=== PATIENT | female | born 1970 | race African-American/Black ===

== ENCOUNTER 2016-11-09 15:46 | Emergency (ER) | payer BC ==
--- NOTE | ~2016-11-09 | CR72 ---
[facility]. [facility] A Service of [facility] & [facility] RADIOLOGY TEXT RESULTS PATIENT: LARA ROSADO LOCATION: SED : 70 UNIT #: [id number] AGE: [address]: Lauro Perez MD SEX: F ORDER DR: [id number] [address] [address] [id number] MR#: [id number] Acc #: [id number] NAME: LARA ROSADO : 1970 SEX: F STUDY DATE/TIME: 11/09/2016 16:18 UNIT: SED ROOM: STUDY DESCRIPTION: CR Chest Single View Portable Attending Physician: Lauro Perez M.D. Ordering Physician: Lauro Perez M.D. Primary Care Physician: No Primary Care Physician MEDICAL IMAGING REPORT This report is preliminary unless electronic signature is present. EXAM Single view of the chest, dated 11/09/16. COMPARISON None. HISTORY Weakness all day today. FINDINGS Single view of the chest was obtained. A single AP view of the chest shows both lungs to be clear. The heart is normal in size. The mediastinal contour is normal. No significant bone abnormalities are seen. IMPRESSION Normal AP chest. Dictated by... Julissa Bernal M.D. THIS IS AN ELECTRONICALLY VERIFIED REPORT Julissa Bernal M.D. at 11/11/2016 8:32 PM CPR/jt TD: 11/09/2016 19:34 JOB #: [id number] MEDICAL IMAGING REPORT Page 1 of 1
--- NOTE | ~2016-11-09 | EKG ---
PATIENT: LARA ROSADO UNIT #: [id number] Ventricular Rate: 76 BPM Atrial Rate: 76 BPM P-R Interval: 220 ms QRS Duration: 80 ms Q-T Interval: 390 ms QTC Calculation(Bezet): 438 ms P [place]: 48 degrees Calculated R [place]: -4 degrees Calculated T [place]: 35 degrees Diagnosis Line: Sinus rhythm with 1st degree A-V block Diagnosis Line: Otherwise normal ECG Diagnosis Line: No previous ECGs available Diagnosis Line: Confirmed by SHAVON DAWN MD ([id number]) on Diagnosis Line: 11/13/2016 8:30:22 AM INTERPRETING MD: NEREYDA VALENZUEAL
[~2016-11-09 15:46] MED LIST: DIAZEPAM PO; PROZAC PO; WELLBUTRIN PO
[2016-11-09] MEDS ORDERED: NORVASC PO (15:49)
[2016-11-09 16:53] LABS: BASOPHIL# 0.1 X10e3 (0-0.3); BASOPHIL% 1.1 % (0-2.5); EOSINOPHIL# 0.1 X10e3 (0-0.7); EOSINOPHIL% 0.7 % (0.0-7.0); HEMATOCRIT 37.4 % (35.0-45.0); HEMOGLOBIN 11.7 gm/dL (12.0-16.0); LYMPHOCYTE# 2.3 X10e3 (1.0-3.5); LYMPHOCYTE% 27.8 % (17.0-45.0); MEAN CORPUSCULAR HGB CONC 31.3 g/dL (30-36); MEAN PLATELET VOLUME 9.8 FL (6.5-11.5); MONOCYTE# 0.4 X10e3 (0-1.0); MONOCYTE% 4.8 % (3.0-12.0); NEUTROPHIL# 5.5 X10e3 (1.5-7.1); NEUTROPHIL% 65.6 % (40-75); PLATELET COUNT 203 X10e3 (140-420); RED BLOOD COUNT 4.68 X10e (3.90-5.30); RED CELL DISTRIBUTION WIDTH 14.9 % (11.0-15.5); WHITE BLOOD COUNT 8.3 X10e3 (4.0-10.5)
[2016-11-09 16:59] LABS: POC - CKMB 2.1 ng/mL (0.0-7.9); POC - TROPONIN <0.05 ng/mL (<=0.05)
[2016-11-09 17:00] LABS: DIFF IND NO
[2016-11-09 17:01] LABS: INR 1.1; PROTHROMBIN TIME (PATIENT) 12.6 SECONDS (9.5-12.4)
[2016-11-09 17:08] LABS: PARTIAL THROMBOPLASTIN TIME <20.0 SECONDS (25.6-38.1)
[2016-11-09 17:09] LABS: ALBUMIN SERUM 4.1 g/dL (3.5-5.0); BILIRUBIN, DIRECT 0.1 mg/dL (0.0-0.2); BILIRUBIN,INDIRECT 0.8 mg/dL (0.0-0.9); BILIRUBIN,TOTAL 0.9 mg/dL (0.2-2.0); CALCIUM SERUM 8.8 mg/dL (8.4-10.2); CREATININE SERUM 0.5 mg/dL (0.6-1.4); GLOM FILT RATE Estimated 134.5 mL/min (>60); POTASSIUM 3.5 mmol/L (3.5-5.1)
[2016-11-09 17:43] LABS: URINE SOURCE CLEAN CATCH
[2016-11-09 17:45] LABS: URINE APPEARANCE CLEAR; URINE BILIRUBIN NEG (NEG); URINE BLOOD NEG (NEG); URINE COLOR YELLOW; URINE GLUCOSE NEG (NORM); URINE KETONE 1+ (NEG); URINE LEUKOCYTE ESTERASE NEG (NEG); URINE NITRATE NEG (NEG); URINE PROTEIN NEG (NEG); URINE UROBILINOGEN 0.2 MG/DL (NORM)
[2016-11-09 17:52] LABS: MICRO INDICATED? NO
[2016-11-09 17:55] LABS: AMPHETAMINE NEG (NEG); BARBITURATES NEG (NEG); BENZODIAZEPINES NEG (NEG); COCAINE NEG (NEG); MARIJUANA NEG (NEG); OPIATES NEG (NEG); TRICYCLIC ANTIDEPRESSANTS NEG (NEG); U METHADONE NEG (NEG)
[2016-11-09 18:32] LABS: POC - CKMB 1.2 ng/mL (0.0-7.9); POC - TROPONIN <0.05 ng/mL (<=0.05)
== END 2016-11-09 18:52 | disposition home or self-care (01) ==
LOC: SED 15:46
PROVIDERS: Emergency Medicine
DX: R53.83 Other fatigue (principal); I10 Essential (primary) hypertension; F17.210 Nicotine dependence, cigarettes, uncomplicated; Z88.0 Allergy status to penicillin; Z79.899 Other long term (current) drug therapy
CPT/HCPCS: 36415; 71010; 80048; 80076; 80307; 81003; 82553; 84484; 85025; 85610; 85730; 93005; 99284